=== PATIENT | female | born 1930 | race Caucasian/White ===

== ENCOUNTER 2019-01-21 09:13 | Emergency (ER) | payer MEDICAID ==
[~2019-01-21] VITALS: Ht 152.4 cm; Wt 45.5 kg
[~2019-01-21 09:13] MED LIST: losartan; metoprolol; simvastatin
[2019-01-21] MEDS ORDERED: ACETAMINOPHEN 325 MG TABLET PO ONE (09:45)
[2019-01-21] MEDS ORDERED: IBUPROFEN 600 MG TABLET PO ONE (09:45)
[2019-01-21 11:49] VITALS: BP 140/78
== END 2019-01-21 11:51 | disposition home or self-care (01) ==
LOC: EMS 09:15
DX: S86.812A Strain of other muscle(s) and tendon(s) at lower leg level, left leg, initial encounter (principal); S80.02XA Contusion of left knee, initial encounter; M17.0 Bilateral primary osteoarthritis of knee; I10 Essential (primary) hypertension; E78.00 Pure hypercholesterolemia, unspecified; Z88.0 Allergy status to penicillin; W01.10XA Fall on same level from slipping, tripping and stumbling with subsequent striking against unspecified object, initial encounter; Y93.89 Activity, other specified; Y92.89 Other specified places as the place of occurrence of the external cause; Y99.8 Other external cause status